=== PATIENT | male | born 1980 | race Caucasian/White ===

== ENCOUNTER 2022-11-27 21:47 | Emergency (ER) | payer OTHER ==
[~2022-11-27] VITALS: Ht 182.9 cm; Wt 117.9 kg
[~2022-11-27 21:47] MED LIST: ARIP30; ATEN50 PO; Atarax10 MG PO; CATAPRES0.1 MG PO; CYCL10 PO; CYMBALTA60 M2 PO; DIPH50 PO; DULO60 PO; ESCI10 PO; EUTHYROX175 MCG PO; FISH OIL 1,001000 MG PO; GEMF600 PO; Inderal 20 mg T20 MG PO; LAMO25 PO; LEVSOD150 PO; LISI5 PO; MELA3 PO; MELATONIN1010 PO; MELATONIN5 M1 PO; METF500 PO; METO25 PO; MIRT30 PO; OMEP20ER PO; OMEPRAZOLE20 MG PO; PRAZ2 PO; PROM25 PO; PROP10 PO; QUET100 PO; QUET200 PO; QUETIAPINE FUMA50 M2 PO; SODFLU1.1 PO; TIZA4 PO; TRAZ150T57 PO; TRAZ50 PO; Triamcinolone A15 G3 TOP
[2022-11-27 22:14] VITALS: BP 133/97
[2022-11-27 22:54] LABS: Source, Urine Clean Catch
[2022-11-27 22:58] LABS: Bilirubin, Urine Neg (Neg); Blood, Urine Neg (Neg); Glucose Qualitative, Urine Neg (Neg); Ketones, Urine Neg (Neg); Leukocyte Esterase, Urine Neg (Neg); Nitrite, Urine Neg (Neg); Protein, Urine Neg (Neg); Specific Gravity, Urine 1.005 (1.003-1.022); Urobilinogen, Urine NORM (Normal)
[2022-11-27 22:59] LABS: Appearance, Urine Clear (Clear); Color, Urine Yellow (P-Yellow)
[2022-11-28 00:19] LABS: BASOPHILS ABSOLUTE AUTO 0.04 K/mm3 (0.00-0.23); BASOPHILS PERCENT AUTO 1 % (0-2); EOSINOPHILS ABSOLUTE AUTO 0.26 K/mm3 (0.00-0.68); EOSINOPHILS PERCENT AUTO 4 % (0-6); Hematocrit 41.5 % (37.0-53.0); Hemoglobin 14.5 g/dL (13.5-17.5); IMMATURE GRAN ABSOLUTE AUTO 0.03 K/mm3 (0.00-0.10); IMMATURE GRAN PERCENT AUTO 0 % (0-1); LYMPHOCYTES ABSOLUTE AUTO 2.65 K/mm3 (0.84-5.20); LYMPHOCYTES PERCENT AUTO 39 % (21-46); MONOCYTES ABSOLUTE AUTO 0.51 K/mm3 (0.16-1.47); MONOCYTES PERCENT AUTO 7 % (4-13); Mean Corpuscular HGB Conc 34.9 g/dL (31.5-36.5); Mean Corpuscular Volume 89 fL (80-100); NEUTROPHILS ABSOLUTE AUTO 3.39 K/mm3 (1.96-9.15); NEUTROPHILS PERCENT AUTO 49 % (41-73); Platelet Count 271 K/mm3 (150-400); RDW Coefficient Variation 13.1 % (11.7-14.2); RDW Standard Deviation 42.5 fL (35.1-46.3); Red Blood Cell Count 4.67 M/mm3 (4.30-5.90); White Blood Cell Count 6.88 K/mm3 (4.00-11.30)
[2022-11-28 00:37] LABS: Albumin, Blood 4.6 g/dL (3.4-5.0); Albumin/Globulin Ratio 1.2 (0.8-1.8); Bilirubin, Total 0.4 mg/dL (0.1-1.0); Bun/Creatinine Ratio 11.9 (12.0-20.0); Calcium, Blood 9.1 mg/dL (8.5-10.1); Creatinine, Blood 1.26 mg/dL (0.60-1.20); Globulin, Blood 3.8 g/dL (2.2-4.0); Total Protein, Blood 8.4 g/dL (6.4-8.2)
[2022-11-28] MEDS ORDERED: LIDO700A20 TOP (01:32)
== END 2022-11-28 01:30 | disposition home or self-care (01) ==
LOC: ER 21:47
PROVIDERS: Physician Assistant; Student in an Organized Health Care Education/Training Program
DX: M54.50 Low back pain, unspecified (principal); R10.9 Unspecified abdominal pain; Z88.2 Allergy status to sulfonamides; Z88.1 Allergy status to other antibiotic agents; Z79.899 Other long term (current) drug therapy; Z79.84 Long term (current) use of oral hypoglycemic drugs; G47.30 Sleep apnea, unspecified; G47.00 Insomnia, unspecified; I10 Essential (primary) hypertension; E11.9 Type 2 diabetes mellitus without complications; Z87.891 Personal history of nicotine dependence
CPT/HCPCS: 80053; 81003; 83690; 85025; 93005; 93010; 96374; 99284; A9270; J1885

== ENCOUNTER 2024-04-05 18:58 | Emergency (ER) | payer OTHER ==
[~2024-04-05] VITALS: Ht 152.4 cm; Wt 115.7 kg
[~2024-04-05 18:58] MED LIST changes: +LEVFLO500 PO; +LIDO700A20 TOP
[2024-04-05 19:29] VITALS: BP 167/90
[2024-04-05] MEDS ORDERED: Amoxicillin/Clavulanate K 875 MG Tab PO ONE (20:15)
[2024-04-05] MEDS ORDERED: Diphth,Pertuss(Acell),Tet Vac 0.5 ML VIAL IM ONE (20:15)
[2024-04-05] MEDS ORDERED: AMOCLA875 PO (20:18)
== END 2024-04-05 20:28 | disposition home or self-care (01) ==
LOC: ER 18:58
DX: S61.452A Open bite of left hand, initial encounter (principal); E11.9 Type 2 diabetes mellitus without complications; I10 Essential (primary) hypertension; F17.200 Nicotine dependence, unspecified, uncomplicated; Z88.2 Allergy status to sulfonamides; Z88.1 Allergy status to other antibiotic agents; Z79.890 Hormone replacement therapy; Z79.84 Long term (current) use of oral hypoglycemic drugs; Z79.899 Other long term (current) drug therapy; W54.0XXA Bitten by dog, initial encounter
CPT/HCPCS: 90471; 90715; 99283-25; A9270

== ENCOUNTER 2024-05-26 09:08 | Day surgery (SDC) | payer OTHER ==
[~2024-05-26] VITALS: Ht 182.9 cm; Wt 115.5 kg
[~2024-05-26 09:08] MED LIST changes: +AMOCLA875 PO
[2024-05-26] MEDS ORDERED: CeFAZolin Sodium 2,000 MG VIAL ONE (09:11)
[2024-05-26] MEDS ORDERED: EUTHYROX125 MCG PO (09:40)
[2024-05-26] MEDS ORDERED: TRAZ100 PO (09:45)
[2024-05-26] MEDS ORDERED: Clindamycin 900mg in D5W 50ML 50 ML IV ONE (10:07)
[2024-05-26] MEDS ORDERED: Lactated Ringer's 1,000 ML IV ONE (10:15)
[2024-05-26] MEDS ORDERED: FentaNYL Citrate 50 MCG/ML 2 ML Injection ONE (10:19)
[2024-05-26] MEDS ORDERED: propofoL 20 ML IV ONE (10:19)
[2024-05-26] MEDS ORDERED: Ondansetron HCl 2 MG / ML 2ML Vial ONE (10:20)
[2024-05-26] MEDS ORDERED: Dexamethasone Sod Phos 10 MG/ML 1ML VIAL ONE (10:20)
[2024-05-26] MEDS ORDERED: Ketorolac Tromethamine 30mg Vial ONE (10:20)
--- NOTE | 2024-05-26 10:22 | NUR ---
05/26/24 1022 AUGUSTINE QUIROS PT HAS NICOTINE PATCH ON RIGHT ARM MOVED TO LEFT ARM COVERED W/ TEGREDERM OKAY PER DR FRANKLIN
[2024-05-26] MEDS ORDERED: Bupivacaine 0.5% HCl 5 MG/ML 30MLVIAL INJ ONE ×2 (10:40)
--- NOTE | 2024-05-26 11:36 | NUR ---
05/26/[address] AT BEDSIDE
--- NOTE | 2024-05-26 11:59 | NUR ---
05/26/24 1159 Jeanine Stone [facility] TOLERATING ORAL FLUIDS WELL
[2024-05-26] MEDS ORDERED: HYDROcodone 5-APAP 325 TAB ONE (12:22)
[2024-05-26 12:48] VITALS: BP 114/83
== END 2024-05-26 13:02 | disposition home or self-care (01) ==
LOC: ORSCSDS 09:08
PROVIDERS: Orthopaedic Surgery
PROC: 0PC Upper Bones, Extirpation (ICD-10-PCS; principal; 2024-05-26 10:30)
PROC: 0MB30ZZ Excision of Right Elbow Bursa and Ligament, Open Approach (ICD-10-PCS; principal; 2024-05-26 10:30)
DX: M70.31 Other bursitis of elbow, right elbow (principal); M77.9 Enthesopathy, unspecified; I10 Essential (primary) hypertension; G47.33 Obstructive sleep apnea (adult) (pediatric); E11.9 Type 2 diabetes mellitus without complications; E03.9 Hypothyroidism, unspecified; F17.210 Nicotine dependence, cigarettes, uncomplicated; F41.9 Anxiety disorder, unspecified; F32.A Depression, unspecified; Z79.84 Long term (current) use of oral hypoglycemic drugs; Z79.899 Other long term (current) drug therapy
CPT/HCPCS: 82947; 88304; 88305; 88311; A9270; J0690; J1100; J1885; J2405; J2704; J3010